=== PATIENT | male | born 1955 | race Caucasian/White ===

== ENCOUNTER → 2021-04-09 00:46 | Outpatient (CLI) | payer MEDICARE, SELFPAY ==
[2021-04-10 16:57] LABS: SARS-CoV-2 RNA PCR Negative
== END ==
PROVIDERS: PCP Emergency Medicine; Visit Provider Internal Medicine Gastroenterology
DX: Z01.812 Encounter for preprocedural laboratory examination (principal); Z20.822 Contact with and (suspected) exposure to COVID-19
CPT/HCPCS: C9803; U0003; U0005

== ENCOUNTER 2021-04-12 00:14 | Day surgery (SDC) | payer MEDICARE, SELFPAY ==
[2021-03-24 09:08] VITALS: BMI 30.1
[2021-04-12] MEDS: LACTATED RINGERS 1,000 ML 150 ML IV CONT (08:55)
[2021-04-12 08:56] VITALS: BP 114/74; PULSE 48; RESP 18; TEMP 36.5; O2SAT 100; BMI 28.8
--- NOTE | 2021-04-12 09:05 | WPDANESEPPF ---
Anes - Initial Pre Proc Eval Procedure: Operation Date: 04/12/21 09:45 Proposed Procedures p Screening Colonoscopy - Denis Hawk MD Date/Time: 04/12/21 09:05 Surgeon: Denis Hawk MD Pre Op Diagnosis: neoplasm, hx of colon polyps Patient Data Age: 65 Gender: M Height: 1.8 m Weight: 93.6 kg Last Vital Signs Temp 97.7 F 04/12/21 08:56 Pulse 48 L 04/12/21 08:56 Resp 18 04/12/21 08:56 BP 114/74 04/12/21 08:56 Pulse Ox 100 04/12/21 08:56 Allergies Allergy/AdvReac Type Severity Reaction Status Date / Time No Known Allergies Allergy Unverified 04/12/21 08:43 Home Medications Medication Instructions Recorded Confirmed Type atorvastatin 10 mg tablet 10 mg PO DAILY #90 tablet 09/23/20 03/24/21 Rx fluticasone propionate 50 1 spray INTRANASAL BID #16 g 02/02/21 03/24/21 Rx mcg/actuation nasal spray,suspension aspirin 81 mg PO DAILY PRN 03/24/21 04/12/21 History Patient hx anesthesia problems: none Family hx anesthesia problems: none PMFSH Past Medical History Medical History Arthritis Chest pain Chicken pox Frequent urination High cholesterol Mumps Surgical History Surgical History History of ankle surgery Social History Social History Smoking status: Never smoker Living arrangements: with family Spiritual care concerns: No Anes - Eval Final PreProcedure Day of Procedure 04/12/21 09:05 Patient weight: overweight Heart: regular rate and rhythm Lungs: clear to auscultation Airway: Mallampati scale class II Neurological: alert and oriented Last oral intake: >/= 8 hours ASA classification: II Emergent: no Anesthetic plan: proceed Anesthesia type and monitoring: general GIVS and standard monitoring Informed Consent: The patient's anesthetic plan and its attendant risks and benefits were discussed with the patient/family/POA. Questions were solicited and answers provided to the satisfaction of the patient/family/POA.
--- NOTE | 2021-04-12 09:32 | PM.HPGS ---
History of Present Illness History of Present Illness Consent: Risks, benefits, and alternatives have been discussed and questions answered. Patient agrees to proceed with procedure. Chief complaint: neoplasm, hx of colon polyps Narrative: Shaun Briseno is a 65 year old male with colon polyp in 2017 Review of Systems Constitutional: Constitutional: Denies headache(s) and Denies weakness Eyes: Eyes: Denies blurry vision ENT: Reports Normal hearing present, Denies headache(s) and Denies neck pain Cardiovascular: Cardiovascular: Denies chest pain and Denies dyspnea Respiratory: Respiratory: Denies dyspnea Gastrointestinal: Gastrointestinal: Reports no additional gastrointestinal complaints Genitourinary: Genitourinary: Denies dysuria Musculoskeletal: Musculoskeletal: Denies neck pain Integumentary/Breasts: Skin/Breast: Denies dry skin Neurologic: Reports Normal hearing present, Denies headache(s) and Denies weakness Psychiatric: Psychiatric: Denies anxiety Endocrine: Endocrine: Denies change in body appearance Hematologic/Lymphatic: Hematologic/Lymphatic: Denies easy bleeding Allergic/Immunologic: Allergic/Immunologic: Denies urticaria PMFSH Past Medical History Medical History (Updated 04/12/21 @ 09:32 by Denis Hawk MD) Adenomatous colon polyp Arthritis Chest pain Chicken pox Frequent urination High cholesterol Mumps Surgical History Surgical History History of ankle surgery Social History Social History Smoking status: Never smoker Living arrangements: with family Spiritual care concerns: No Meds Home Medications and Allergies Home Medications Medication Instructions Recorded Confirmed Type atorvastatin 10 mg tablet 10 mg PO DAILY #90 tablet 09/23/20 03/24/21 Rx fluticasone propionate 50 1 spray INTRANASAL BID #16 g 02/02/21 03/24/21 Rx mcg/actuation nasal spray,suspension aspirin 81 mg PO DAILY PRN 03/24/21 04/12/21 History Allergies Allergy/AdvReac Type Severity Reaction Status Date / Time No Known Allergies Allergy Unverified 04/12/21 08:43 Vital Signs Vital Signs - 24 hr 04/12/21 08:56 Temperature 97.7 F Pulse Rate 48 L Respiratory Rate 18 Blood Pressure 114/74 Pulse Oximetry 100 Exam Const: General: comfortable and no acute distress HENMT: General nose exam: Normal nares present Eyes: General: appearance normal, both eyes and all related structures Neck: Neck: no JVD Resp: Auscultation: clear to auscultation bilaterally Cardio: Rate: regular rate Rhythm: regular rhythm GI: Inspection: non-distended GI Palp: Yes Soft to palpation Skin: General skin exam: normal color Neuro: General: gait normal Speech: normal speech Extrem: General: normal to inspection Psych: Mental Status: mental status grossly normal Assessment and Plan Assessment and plan (1) Adenomatous colon polyp: Code(s): D12.6 - Benign neoplasm of colon, unspecified Status: Acute Assessment and Plan: colonoscopy
[2021-04-12 10:01] VITALS: BP 100/64; PULSE 48; RESP 18; O2SAT 96
[2021-04-12 10:11] VITALS: BP 110/66; PULSE 43; RESP 18; O2SAT 98
[2021-04-12 10:20] VITALS: BP 114/67; PULSE 49; RESP 18; O2SAT 99
== END 2021-04-12 10:29 | disposition home or self-care (01) ==
PROVIDERS: PCP Emergency Medicine; Visit Provider Internal Medicine Gastroenterology
PROC: 0DJD8ZZ Inspection of Lower Intestinal Tract, Via Natural or Artificial Opening Endoscopic (ICD-10-PCS; CPT 45378; principal; 2021-04-12 09:45)
DX: Z12.11 Encounter for screening for malignant neoplasm of colon (principal); K63.5 Polyp of colon; K62.1 Rectal polyp; K57.30 Diverticulosis of large intestine without perforation or abscess without bleeding; K64.8 Other hemorrhoids; M19.90 Unspecified osteoarthritis, unspecified site; E78.00 Pure hypercholesterolemia, unspecified; Z79.82 Long term (current) use of aspirin
CPT/HCPCS: 45385; 45380; 88305; C9803; J2704; J7120; U0003; U0005

== ENCOUNTER 2023-03-10 11:55 | Emergency (ER) | payer MEDICARE, SELFPAY ==
--- NOTE | ~2023-03-10 | XR_ITS ---
EXAMINATION: XR chest 2V 03/10/2023 12:42 INDICATION: Low heart rate. Dizziness. PROCEDURE: 2 view chest COMPARISON: 10/18/2017 FINDINGS: The lungs are clear. The cardiomediastinal silhouette is within normal limits. There are no pleural effusions. There is no pneumothorax suspected. IMPRESSION: 1: NO ACUTE CARDIOPULMONARY DISEASE. Reviewed, dictated and finalized at location B.
--- NOTE | 2023-03-10 12:00 | ECG_ITS ---
Measurements Intervals [place] Rate: 42 P: 30 MD: 186 QRS: 5 QRSD: 134 T: 33 QT: 450 QTc: 380 Interpretive Statements SINUS BRADYCARDIA INTRAVENTRICULAR CONDUCTION DELAY VOLTAGE CRITERIA FOR LVH MINIMAL Q WAVES- HIGH LATERAL LEADS ABNORMAL ECG NO PREVIOUS ECG AVAILABLE FOR COMPARISON Electronically Signed On 03-10-2023 12:32:40 CDT by Ramón Otero D.O.
[2023-03-10 12:01] VITALS: BP 139/81; PULSE 46; RESP 18; TEMP 36.6; O2SAT 99
[2023-03-10 12:25] LABS: Basophils Absolute Auto 0.1 K/mm3 (0.0-0.1); Basophils Percent Auto 1.1 % (0.2-1.2); Eosinophils Absolute Auto 0.1 K/mm3 (0-0.3); Eosinophils Percent Auto 2.2 % (0-4.4); Hematocrit 44.6 % (42.0-52.0); Hemoglobin 15.2 g/dL (14.0-18.0); Immature Granulocyte Absolute 0.03 K/mm3 (0.00-0.031); Immature Granulocyte Percent A 0.5 % (0-0.5); Lymphocytes Absolute Auto 1.73 K/mm3 (0.9-3.2); Lymphocytes Percent Auto 31.3 % (18.3-44.2); Mean Corpuscular HGB Conc 34.1 g/dl (32-36); Mean Corpuscular Hemoglobin 31.5 pg (26-34); Mean Corpuscular Volume 92.5 fl (80-100); Mean Platelet Volume 8.6 fl (7.4-10.4); Monocytes Absolute Auto 0.6 K/mm3 (0.1-0.6); Neutrophils Percent Auto 54.9 % (45.5-73.1); Platelet Count Result 214 k/mm3 (150-375); Red Blood Count 4.82 M/mm3 (4.6-6.20); Red Cell Distribution Width 12.4 % (11.5-14.5); White Blood Count 5.5 K/mm3 (4.5-10.0)
[2023-03-10 12:39] LABS: Prothrombin Time 13.3 Seconds (11.1-14.7)
[2023-03-10 12:40] LABS: Partial Thromboplastin Time 32.7 SECONDS (22.3-36.8)
[2023-03-10 12:43] LABS: Alanine Aminotransferase 29 U/L (6-50); Albumin Level 4.7 g/dL (3.5-5.1); Alkaline Phosphatase 72 U/L (38-126); Anion Gap 7 mmol/L (8-16); Aspartate Amino Transferase 34 U/L (17-59); Bilirubin,Total 1.1 mg/dL (0.2-1.3); Blood Urea Nitrogen 21 mg/dL (9-20); Calcium 8.6 mg/dL (8.4-10.2); Carbon Dioxide 25 mmol/L (22-30); Chloride 107 mmol/L (98-107); Estimated CRCL calculation 97 ml/min; Estimated Glomerular Filt Rate > 60; Glucose 94 mg/dL (65-110); Lipase 63 U/L (23-300); Sodium 139 mmol/L (137-145)
[2023-03-10 12:53] LABS: Troponin I < 0.012 ng/mL (0.000-0.034)
[2023-03-10 13:28] VITALS: PULSE 41
[2023-03-10 14:44] VITALS: BP 119/73; PULSE 39
[2023-03-10 14:46] VITALS: BP 131/76; PULSE 38
[2023-03-10 14:48] VITALS: BP 146/90; PULSE 46
[2023-03-10 15:22] LABS: Troponin I < 0.012 ng/mL (0.000-0.034)
--- NOTE | 2023-03-10 16:27 | ED.ARRPALP ---
HPI - Arrhythmia/Palpitations General Chief Complaint: Arrhythmia/Palpitations Stated Complaint: heart palpitations Time Seen by Provider: 03/10/23 13:24 History of Present Illness HPI narrative: Patient is a 67-year-old male who presents the ER with complaint of low heart rate. Reports he had a low heart rate in the past. 4 days ago he started having dizziness while getting out of a car. He has felt slightly off and has had intermittent dizziness over the last couple days. It is since resolved today. After discussing with his PCP he was sent here to be evaluated for possible symptomatic bradycardia. Patient has no chest pain or chest pressure. No exertional dyspnea or fatigue. He is on no beta-blockers or other rate control medications. Related Data Home Medications Medication Instructions Recorded Confirmed aspirin 81 mg tablet 81 mg PO DAILY PRN Back Pain 03/24/21 04/12/21 ascorbate calcium (vitamin C) 500 500 mg PO DAILY 02/22/22 mg tablet cholecalciferol (vitamin D3) 25 25 mcg PO DAILY 02/22/22 mcg (1,000 unit) capsule multivitamin 1 tablet PO DAILY 02/22/22 vitamin B complex (B 1 tablet PO DAILY 02/22/22 Complex-Vitamin B12 tablet) zinc 50 mg tablet 50 mg PO DAILY 02/22/22 Allergies Allergy/AdvReac Type Severity Reaction Status Date / Time No Known Allergies Allergy Verified 03/10/23 11:35 Review of Systems Constitutional: Constitutional: Denies chills, Denies fatigue and Denies fever(s) ENT: Denies nasal congestion and Denies sore throat Cardiovascular: Cardiovascular: Denies chest pain, Denies rapid heart rate, Denies radiating jaw, neck or arm pain and Reports slow heart rate Respiratory: Respiratory: Denies cough and Denies dyspnea Gastrointestinal: Gastrointestinal: Denies abdominal pain, Denies nausea and Denies vomiting Neurologic: Reports dizziness, Denies syncope and Denies headache(s) [facility] Past Medical History Medical History Adenomatous colon polyp Arthritis Chest pain Chicken pox Frequent urination High cholesterol Mumps Surgical History Surgical History History of ankle surgery Social History Social History (Updated 03/10/23 @ 12:51 by MILY Garsia Smoking status: Never smoker Lack of Transportation: No Lack of Food: Never True Current Housing: I Have Housing Concerned About Future Housing: No Difficulty Paying Gas/Electric Bills: No Difficulty Paying for Meds: No Currently Unemployed: No Education: High School Diploma/GED Difficulty w/ Childcare or Family Care: No Living arrangements: with family Spiritual care concerns: No Exam Narrative: GENERAL: Well-appearing, well-nourished, and in no acute distress. HEAD: Normocephalic, atraumatic. EYES: PERRL and EOMI. ENT: Mucous membranes moist. TMs normal bilaterally. CHEST: Clear to auscultation. No respiratory distress. HEART: Bradycardic and regular. Normal peripheral pulses. ABDOMEN: Soft, nontender, nondistended. EXTREMITIES: Normal range of motion. No edema. SKIN: Warm, dry, no rash. NEURO: Alert and oriented x3. PSYCH: Normal mood and affect. Course Course Emergency Course: Chart review shows patient has been bradycardic for years. I discussed the case with Dr. Otero. His office has come over and placed a cardiac event monitor on the patient so they can further evaluate his bradycardia and whether he may be having pauses causing his dizziness. He will have the patient follow-up in 1 week and patient is comfortable with this plan. There is no dizziness here and orthostatics were negative. Vital Signs Vital signs: Vital Signs Temperature 97.9 F 03/10/23 12:01 Pulse Rate 46 L 03/10/23 12:01 Respiratory Rate 18 03/10/23 12:01 Blood Pressure 139/81 03/10/23 12:01 Pulse Oximetry 99 03/10/23 12:01 Oxygen Delivery Ro
[2023-03-10 16:51] VITALS: BP 121/74; PULSE 39; RESP 16; O2SAT 97
== END 2023-03-10 16:52 | disposition home or self-care (01) ==
PROVIDERS: Emergency Provider Emergency Medicine; PCP Emergency Medicine
DX: R00.1 Bradycardia, unspecified (principal); E78.00 Pure hypercholesterolemia, unspecified; M19.90 Unspecified osteoarthritis, unspecified site; Z86.010 Personal history of colon polyps; Z79.82 Long term (current) use of aspirin; I45.9 Conduction disorder, unspecified
CPT/HCPCS: 36415; 71046; 80053; 83690; 84484; 85025; 85610; 85730; 93005; 99284

== ENCOUNTER 2023-05-15 07:37 | Outpatient (CLI) | payer MEDICARE, SELFPAY ==
--- NOTE | 2023-05-15 07:45 | EST_ITS ---
Patient Info Name: Shaun Briseno Age: 67 years : 1955 Gender: Male Ht: 71 in Wt: 221 lbs BSA: 2.27 m2 HR: 41 bpm BP: 111 / 76 mmHg Heart Rhythm: Bradycardia Exam Date: 05/15/2023 8:51 AM Exam Location: [facility] Patient Status: Outpatient Admit Date: 05/15/2023 Staff Ordering Physician: Ramón Otero DO Attending Provider: Ramón Otero DO Exercise Technologist: Kayleen Mckinney CRT Exercise Physician: Shante Zaidi CEP Exam Type: CA stress ottoniel w NM Study Info Indications ChestPain - A nuclear stress test was performed. History/Risk Factors Dyslipidemia: Yes History/Risk Factors Dyslipidemia. Summary 1. 1. Negative lexiscan stress test for ischemic ST changes by ECG criteria. 2. 2. Stable hemodynamics throughout the test. 3. 3. Nuclear scan to follow and will be reported separately. Please correlate with it. 4. 4. Patient informed of the above results. Protocol: LEXISCAN Stress ECG Details Stage: REST Duration (min): 2 min : 4 sec HR (bpm): 41 SBP (mmHg): 111 DBP (mmHg): 76 Stage: REST Duration (min): 7 min : 41 sec HR (bpm): 41 SBP (mmHg): 111 DBP (mmHg): 76 Stage: STAGE 1 Duration (min): 0 min : 11 sec HR (bpm): 39 SBP (mmHg): 111 DBP (mmHg): 76 Stage: RECOVERY Duration (min): 0 min : 48 sec HR (bpm): 48 SBP (mmHg): 111 DBP (mmHg): 76 Stage: RECOVERY Duration (min): 1 min : 48 sec HR (bpm): 58 SBP (mmHg): 111 DBP (mmHg): 76 Stage: RECOVERY Duration (min): 2 min : 48 sec HR (bpm): 57 SBP (mmHg): 106 DBP (mmHg): 70 Stage: RECOVERY Duration (min): 3 min : 48 sec HR (bpm): 56 SBP (mmHg): 107 DBP (mmHg): 63 Stage: RECOVERY Duration (min): 4 min : 48 sec HR (bpm): 51 SBP (mmHg): 107 DBP (mmHg): 63 Stage: RECOVERY Duration (min): 5 min : 48 sec HR (bpm): 53 SBP (mmHg): 104 DBP (mmHg): 73 Stage: RECOVERY Duration (min): 6 min : 2 sec HR (bpm): 53 SBP (mmHg): 104 DBP (mmHg): 73 Rest HR: 41 bpm Peak HR: 59 bpm Rest Sys BP: 111 mmHg Peak Sys BP: 108 mmHg Max Pred HR: 155 bpm % Max Pred HR: 38 % Target HR: 132 bpm Max RPP: 6,372 bpm*mmHg Termination Reason: Completed Protocol Cardiac Symptoms: Dyspnea Total Time: 0 min : 11 sec Rest Green BP: 76 mmHg Peak Green BP: 70 mmHg Total Dose: 0.4 mg Resting ECG Sinus bradycardia. Stress ECG No abnormal ST/T wave changes. Arrhythmias None. Report Signatures
--- NOTE | 2023-05-18 11:19 | P.NST_ITS ---
Nuclear Stress Test INDICATIONS Indications: Chest pain PROCEDURE Procedure Performed: Myocardial Perf Spect-Multi Procedure: Patient underwent a lexiscan stress test and immediately was injected with 33.6 mCi of cardiolyte. Multiple tomographic images were obtained. These are of good quality. There is evidence of moderate size, mild inferior perfusion defect during stress imaging. A separate resting images were obtained after patient was injected with 10 mCi of cardiolyte. Multiple tomographic images were obtained. These are of good quality. There is evidence of moderate size, mild inferior perfusion defect during rest imaging. CONCLUSION Conclusion: 1. Myocardial perfusion imaging demonstrating a fixed moderate size inferior de fect suggestive of diaphragmatic attenuation artifact. 2. No evidence of reversible ischemia. 3. Left ventriculogram demonstrates preserved measured LV ejection fraction of 52% with no wall motion abnormalities. The left ventricle is moderate dilated with end diastolic volume of 173 ml. 4. TID score 1.15 is not elevated.
== END 2023-05-15 07:38 | disposition home or self-care (01) ==
PROVIDERS: PCP Emergency Medicine; Visit Provider Internal Medicine Cardiovascular Disease
DX: R07.9 Chest pain, unspecified (principal); R06.09 Other forms of dyspnea
CPT/HCPCS: 78452; 93017; A9502; J2785

== ENCOUNTER 2023-05-17 10:39 | Outpatient (CLI) | payer MEDICARE, SELFPAY ==
--- NOTE | 2023-05-17 10:54 | ECHO_ITS ---
Patient Info Name: Shaun Briseno Age: 67 years : 1955 Gender: Male Ht: 71 in Wt: 220 lbs BSA: 2.26 m2 HR: 78 bpm BP: 141 / 83 mmHg Heart Rhythm: Bradycardia Technical Quality: Fair Exam Date: 05/17/2023 11:24 AM Exam Location: [facility] Patient Status: Outpatient Admit Date: 05/17/2023 Staff Ordering Physician: Florian Nguyen APRN [employer]: Earline Hawk RDCS Attending Provider: Florian Nguyen APRN Referring Physician: Patrick DANIELLE; Exam Type: CA echo doppler color flow Study Info Indications - dyspnea Complete two-dimensional, color flow and Doppler transthoracic echocardiogram is performed. History/Risk Factors Dyslipidemia: Yes Summary 1. Complete two-dimensional, color flow and Doppler transthoracic echocardiogram is performed. 2. Left ventricular chamber dimension is normal. 3. Left ventricular systolic function is normal, estimated at 60-65%. 4. The left ventricular diastolic function is grade I diastolic dysfunction. 5. E/e' 6 is not elevated. 6. Right ventricular chamber dimension is moderately enlarged. 7. Left atrial chamber dimension is moderately enlarged. 8. There is mild mitral valve regurgitation. 9. There is mild tricuspid valve regurgitation. 10. No pulmonary hypertension, estimated pulmonary arterial systolic pressure is 28 mmHg. 11. There is trace pulmonic regurgitation. Left Ventricle E/e' 6 is not elevated. Left ventricular chamber dimension is normal. Left ventricular systolic function is normal, estimated at 60-65%. The left ventricular diastolic function is grade I diastolic dysfunction. Right Ventricle Right ventricular systolic function is normal and with normal TAPSE 2.3 cm. Right ventricular chamber dimension is moderately enlarged. Left Atria Left atrial chamber dimension is moderately enlarged. Right Atria Right atrial chamber dimension is normal. Aortic Valve The aortic valve is trileaflet. There is no aortic valve stenosis. There is no aortic valve regurgitation. Pulmonic Valve There is trace pulmonic regurgitation. Mitral Valve There is no mitral valve stenosis. There is mild mitral valve regurgitation. Tricuspid Valve There is mild tricuspid valve regurgitation. No pulmonary hypertension, estimated pulmonary arterial systolic pressure is 28 mmHg. Pericardium/Pleural There is no pericardial effusion. Inferior Vena Cava Normal inferior vena cava with >50% collapse upon inspiration consistent with normal right atrial pressure, 5 mmHg. Aorta The aortic root size at the sinus of Valsalva is normal. Left Ventricular Outflow Tract Name Value Normal LVOT 2D LVOT Diameter 2.1 cm LVOT Doppler LVOT Peak Gradient 3 mmHg LVOT Mean Gradient 1 mmHg LVOT VTI 21 cm LVOT VTI/AV VTI Ratio 0.8 LVOT Stroke Volume 70 ml LVOT CO 11.6 l/min LVOT CI 5.1 l/min/m2 Pulmonic Valve Name Value Normal -
== END 2023-05-17 10:40 | disposition home or self-care (01) ==
PROVIDERS: PCP Emergency Medicine; Visit Provider Nurse Practitioner Family
DX: R06.09 Other forms of dyspnea (principal); I34.0 Nonrheumatic mitral (valve) insufficiency; I36.1 Nonrheumatic tricuspid (valve) insufficiency
CPT/HCPCS: 93306

== ENCOUNTER 2024-01-25 07:59 | Outpatient (CLI) | payer MEDICARE, SELFPAY ==
--- NOTE | ~2024-01-25 | CT_ITS ---
Non-contrast CT scan of the Abdomen and Pelvis Clinical indication: Abdominal pain Technique: 2.5 mm axial scans were obtained through the abdomen and pelvis without intravenous or or al contrast. Dose reduction technique was used on this scan by utilizing automated exposure control a nd iterative reconstruction technique. The dose-length product (DLP) was 947.00 mGy-cm. Findings: Images through the lung bases reveal no abnormalities. There is no evidence of renal or ureteral calculi. The kidneys and the ureters are nondilated. The liver, spleen, pancreas, gallbladder, and adrenals appear normal. There is no aortic aneurysm. There is no evidence of bowel obstruction. Images through the pelvis were performed. There is no evidence of ascites or lymphadenopathy. Urinary bladder unremarkable. Prostate gland is enlarged. Small fat-containing left inguinal hernia noted. C hronic mild T11 compression fracture. Impression: No acute abnormalities. Small fat-containing left inguinal hernia. Enlarged prostate gland. Reviewed, dictated and finalized at location . Impression: No acute abnormalities. Small fat-containing left inguinal hernia. Enlarged prostate gland.
== END 2024-01-25 08:00 ==
LOC: MICIMG 08:00
PROVIDERS: PCP Emergency Medicine; Visit Provider Emergency Medicine
DX: R10.9 Unspecified abdominal pain (principal); K40.90 Unilateral inguinal hernia, without obstruction or gangrene, not specified as recurrent; N40.0 Benign prostatic hyperplasia without lower urinary tract symptoms
CPT/HCPCS: 74176

== ENCOUNTER 2024-05-09 06:58 | Day surgery (SDC) | payer MEDICARE, SELFPAY ==
[2024-04-12 15:09] VITALS: BMI 31.0
[2024-04-26 14:50] VITALS: BMI 29.8
[2024-05-09 07:35] VITALS: BP 113/73; PULSE 46; RESP 16; O2SAT 99; BMI 27.8
[2024-05-09] MEDS: LACTATED RINGERS 1,000 ML 150 ML IV CONT (07:46)
--- NOTE | 2024-05-09 08:06 | PM.HPGS ---
History of Present Illness History of Present Illness Consent: Risks, benefits, and alternatives have been discussed and questions answered. Patient agrees to proceed with procedure. Chief complaint: History of Colon Polyps Narrative: Shaun Briseno is a 68 year old male presents for screening colonoscopy. Patient's current weight appetite and bowel movements are normal. He denies abdominal pain. Patient does report prior colon polyps on 2 previous colonoscopies. In 2020 had a sessile serrated adenoma. Patient presents today for screening colonoscopy. Review of Systems Review of Systems: All systems reviewed & are unremarkable except as noted in HPI and below PMFSH Past Medical History Medical History Adenomatous colon polyp Arthritis Chest pain Chicken pox Frequent urination High cholesterol Mumps Surgical History Surgical History History of ankle surgery Social History Social History Smoking status: Never smoker Alcohol intake: never Substance use: never Substance use type: does not use Do You Feel Safe in your Home?: Yes Lack of Transportation: No Lack of Food: Never True Current Housing: I Have Housing Concerned About Future Housing: No Difficulty Paying Gas/Electric Bills: No Difficulty Paying for Meds: No Currently Unemployed: No Education: Decline to Answer Difficulty w/ Childcare or Family Care: No Living arrangements: with family Spiritual care concerns: No Meds Home Medications and Allergies Home Medications Medication Instructions Recorded Confirmed Type ascorbate calcium (vitamin C) 500 500 mg PO DAILY 02/22/22 05/09/24 History mg tablet cholecalciferol (vitamin D3) 25 25 mcg PO DAILY 02/22/22 05/09/24 History mcg (1,000 unit) capsule multivitamin 1 tablet PO DAILY 02/22/22 05/09/24 History vitamin B complex (B 1 tablet PO DAILY 02/22/22 05/09/24 History Complex-Vitamin B12 tablet) zinc 50 mg tablet 50 mg PO DAILY 02/22/22 05/09/24 History atorvastatin 10 mg tablet See Rx Instructions .Route 09/05/23 05/09/24 Rx .COMPLEX #100 tabs fluticasone propionate 50 See Rx Instructions .Route 01/01/24 05/09/24 Rx mcg/actuation nasal .COMPLEX #16 grams spray,suspension Allergies Allergy/AdvReac Type Severity Reaction Status Date / Time No Known Allergies Allergy Verified 05/09/24 07:24 Vital Signs Vital Signs - 24 hr 05/09/24 07:35 Pulse Rate 46 L Respiratory Rate 16 Blood Pressure 113/73 Pulse Oximetry 99 Oxygen Delivery Room Air Exam Narrative: Physical exam reveals patient be alert. Vital signs stable. HEENT exam is unremarkable. Patient is anicteric. Lungs are clear to auscultation and percussion. Without murmur sounds. Abdomen bowel sounds are present soft nontender with no organomegaly. Digital external rectal exam normal. Assessment and Plan Assessment and plan (1) History of colon polyps: Code(s): Z86.010 - Personal history of colonic polyps Status: Acute Assessment and Plan: Patient has a history of colon polyps. Plan for surveillance colonoscopy at intervals in the future. Further recommendations will be given after colonoscopy.
--- NOTE | 2024-05-09 08:07 | WPDANESEPPF ---
Anes - Initial Pre Proc Eval Procedure: Operation Date: 05/09/24 09:00 Proposed Procedures p Diagnostic Colonoscopy - Shaun Gamez MD Date/Time: 05/09/24 08:07 Surgeon: Shaun Gamez MD Pre Op Diagnosis: History of Colon Polyps Patient Data Age: 68 Gender: M Height: 1.8 m Weight: 90.6 kg Last Vital Signs Pulse 46 L 05/09/24 07:35 Resp 16 05/09/24 07:35 BP 113/73 05/09/24 07:35 Pulse Ox 99 05/09/24 07:35 O2 Del Method Room Air 05/09/24 07:35 Allergies Allergy/AdvReac Type Severity Reaction Status Date / Time No Known Allergies Allergy Verified 05/09/24 07:24 Home Medications Medication Instructions Recorded Confirmed Type ascorbate calcium (vitamin C) 500 500 mg PO DAILY 02/22/22 05/09/24 History mg tablet cholecalciferol (vitamin D3) 25 25 mcg PO DAILY 02/22/22 05/09/24 History mcg (1,000 unit) capsule multivitamin 1 tablet PO DAILY 02/22/22 05/09/24 History vitamin B complex (B 1 tablet PO DAILY 02/22/22 05/09/24 History Complex-Vitamin B12 tablet) zinc 50 mg tablet 50 mg PO DAILY 02/22/22 05/09/24 History atorvastatin 10 mg tablet See Rx Instructions .Route 09/05/23 05/09/24 Rx .COMPLEX #100 tabs fluticasone propionate 50 See Rx Instructions .Route 01/01/24 05/09/24 Rx mcg/actuation nasal .COMPLEX #16 grams spray,suspension Patient hx anesthesia problems: none Family hx anesthesia problems: none Results Review: All pre-operative results and documents have been reviewed as part of the pre-operative evaluation. [facility] Past Medical History Medical History Adenomatous colon polyp Arthritis Chest pain Chicken pox Frequent urination High cholesterol Mumps Surgical History Surgical History History of ankle surgery Social History Social History Smoking status: Never smoker Alcohol intake: never Substance use: never Substance use type: does not use Do You Feel Safe in your Home?: Yes Lack of Transportation: No Lack of Food: Never True Current Housing: I Have Housing Concerned About Future Housing: No Difficulty Paying Gas/Electric Bills: No Difficulty Paying for Meds: No Currently Unemployed: No Education: Decline to Answer Difficulty w/ Childcare or Family Care: No Living arrangements: with family Spiritual care concerns: No Anes - Eval Final PreProcedure Day of Procedure 05/09/24 08:07 Patient weight: overweight Heart: regular rate and rhythm Lungs: clear to auscultation Airway: Mallampati scale class II Neurological: alert and oriented Last oral intake: >/= 8 hours ASA classification: III Emergent: no Anesthetic plan: proceed Anesthesia type and monitoring: general GIVS and standard monitoring Results Review: All pre-operative results and documents have been reviewed as part of the pre-operative evaluation. Informed Consent: The patient's anesthetic plan and its attendant risks and benefits were discussed with the patient/family/POA. Questions were solicited and answers provided to the satisfaction of the patient/family/POA.
[2024-05-09 08:36] VITALS: BP 106/73; PULSE 40; RESP 16; O2SAT 98
[2024-05-09 08:46] VITALS: BP 110/77; PULSE 43; RESP 16; O2SAT 99
[2024-05-09 08:56] VITALS: BP 109/77; PULSE 42; RESP 16; O2SAT 99
--- NOTE | 2024-05-09 09:08 | WPDANESPN ---
Anes - Prog Note Post-Op Date/Time: 05/09/24 09:08 Cardiovascular status: normal Respiratory status: normal Airway patency: baseline Mental status: baseline Post-Op hydration status: normal Vital Signs: Last Vital Signs Pulse 42 L 05/09/24 08:56 Resp 16 05/09/24 08:56 BP 109/77 05/09/24 08:56 Pulse Ox 99 05/09/24 08:56 O2 Del Method Room Air 05/09/24 08:56 Pain Score (VAS): 0/10 I/O: Intake & Output 05/08/24 05/09/24 05/09/24 23:59 07:59 15:59 Intake Total 350 Balance 350 Patient Feedback: Patient satisfied with anesthetic care.
== END 2024-05-09 08:59 | disposition home or self-care (01) ==
PROVIDERS: PCP Emergency Medicine; Visit Provider Internal Medicine Gastroenterology
PROC: 0DJD8ZZ Inspection of Lower Intestinal Tract, Via Natural or Artificial Opening Endoscopic (ICD-10-PCS; CPT 45378; principal; 2024-05-09 09:00)
DX: Z86.010 Personal history of colon polyps (principal); D12.5 Benign neoplasm of sigmoid colon; D12.8 Benign neoplasm of rectum; K57.30 Diverticulosis of large intestine without perforation or abscess without bleeding; K64.8 Other hemorrhoids
CPT/HCPCS: 45385

== ENCOUNTER 2024-05-09 07:24 | Outpatient (NON) | payer MEDICARE, SELFPAY | END 2024-05-09 07:25 | disposition home or self-care (01) | LOC: ANHLAB 05-10 07:26 | PROVIDERS: PCP Emergency Medicine; Visit Provider Internal Medicine Gastroenterology | DX: Z12.11 Encounter for screening for malignant neoplasm of colon (principal) | CPT/HCPCS: 88305 ==